=== PATIENT | female | born 1935 | race Native Hawaiian/Other Pacific Islander ===

== ENCOUNTER 2016-08-16 07:46 | Outpatient (CLI) | payer OTHER | END 2016-08-16 22:59 | disposition home or self-care (01) | LOC: LABW 07:46 | PROVIDERS: Nurse Practitioner Adult Health | DX: I25.10 Atherosclerotic heart disease of native coronary artery without angina pectoris (principal); E78.2 Mixed hyperlipidemia; Z79.899 Other long term (current) drug therapy; Z51.81 Encounter for therapeutic drug level monitoring | CPT/HCPCS: 36415; 80061; 80076 ==

== ENCOUNTER 2016-09-02 07:10 | Outpatient (CLI) | payer OTHER | END 2016-09-02 19:29 | disposition home or self-care (01) | LOC: LABW 07:10 | DX: Z79.01 Long term (current) use of anticoagulants (principal); I48.0 Paroxysmal atrial fibrillation; Z51.81 Encounter for therapeutic drug level monitoring | CPT/HCPCS: 36415; 85610 ==

== ENCOUNTER 2016-12-07 07:12 | Outpatient (CLI) | payer OTHER | END 2016-12-07 19:08 | disposition home or self-care (01) | LOC: LABW 07:12 | DX: Z79.899 Other long term (current) drug therapy (principal); I48.0 Paroxysmal atrial fibrillation; Z51.81 Encounter for therapeutic drug level monitoring | CPT/HCPCS: 36415; 85610 ==

== ENCOUNTER 2018-01-12 08:36 | Outpatient (CLI) | payer OTHER | END 2018-01-12 21:17 | disposition home or self-care (01) | LOC: LABW 08:36 | PROVIDERS: Nurse Practitioner Adult Health | DX: I25.10 Atherosclerotic heart disease of native coronary artery without angina pectoris (principal); E78.2 Mixed hyperlipidemia; Z79.899 Other long term (current) drug therapy; Z51.81 Encounter for therapeutic drug level monitoring | CPT/HCPCS: 36415; 80061; 80076 ==

== ENCOUNTER 2018-05-10 15:11 | Emergency (ER) | payer OTHER ==
[~2018-05-10] VITALS: Ht 167.6 cm; Wt 63.5 kg
[2018-05-10 16:00] VITALS: TEMP 98.1
[2018-05-10 18:04] VITALS: BP 160/70
== END 2018-05-10 18:04 | disposition home or self-care (01) ==
LOC: ED 15:11
DX: S70.02XA Contusion of left hip, initial encounter (principal); S80.02XA Contusion of left knee, initial encounter; S50.11XA Contusion of right forearm, initial encounter; W18.39XA Other fall on same level, initial encounter; Y92.89 Other specified places as the place of occurrence of the external cause
CPT/HCPCS: 99283

== ENCOUNTER 2018-08-08 08:54 | Outpatient (CLI) | payer OTHER | END 2018-08-08 19:41 | disposition home or self-care (01) | LOC: LABW 08:54 | PROVIDERS: Nurse Practitioner Adult Health | DX: I25.10 Atherosclerotic heart disease of native coronary artery without angina pectoris (principal); Z79.899 Other long term (current) drug therapy | CPT/HCPCS: 36415; 80061; 80076 ==

== ENCOUNTER 2020-06-23 11:47 | Outpatient (CLI) | payer OTHER | END 2020-06-23 19:38 | disposition home or self-care (01) | LOC: RAD 11:47 | PROVIDERS: ATTEND Nurse Practitioner Family | DX: M79.672 Pain in left foot (principal) ==

== ENCOUNTER 2023-08-17 08:55 | Outpatient (CLI) | payer OTHER | END 2023-08-17 19:02 | disposition home or self-care (01) | LOC: US 08:55 | PROVIDERS: ATTEND Specialist | DX: N13.2 Hydronephrosis with renal and ureteral calculous obstruction (principal) ==